=== PATIENT | male | born 1995 | race Caucasian/White ===

== ENCOUNTER 2019-05-05 12:23 | Outpatient (RCR) | payer MEDICAID, OTHER ==
[~2019-05-05 12:23] MED LIST: No Historical Meds
== END 2019-05-11 ==
LOC: M PT 12:23
PROVIDERS: ATTEND Physician Assistant
DX: M54.5 Low back pain (principal)

== ENCOUNTER 2019-06-03 14:30 | Outpatient (RCR) | payer MEDICAID, OTHER | END 2019-06-11 | LOC: M PT 14:30 | PROVIDERS: ATTEND Physician Assistant | DX: Z47.89 Encounter for other orthopedic aftercare (principal); M54.5 Low back pain ==

== ENCOUNTER → 2023-07-31 | Outpatient (REF) | payer OTHER | LOC: M LAB REF 20:41 | PROVIDERS: ATTEND Physician Assistant Medical | DX: R52 Pain, unspecified (principal) ==

== ENCOUNTER 2024-05-16 20:02 | Emergency (ER) | payer OTHER ==
[~2024-05-16] VITALS: Ht 175.3 cm; Wt 99.2 kg
[2024-05-16] MEDS ORDERED: CEPH500C PO (21:56)
[2024-05-16] MEDS ORDERED: PRED20TA PO (21:56)
[2024-05-16] MEDS: CEPHALEXIN 500 MG CAP PO ONE (22:01)
[2024-05-16] MEDS: predniSONE 20 MG TAB PO ONE (22:05)
[2024-05-16 22:06] VITALS: BP 136/90; TEMP 96.1; O2SAT 98
== END 2024-05-16 22:04 | disposition home or self-care (01) ==
LOC: M ED 20:02
DX: T63.441A Toxic effect of venom of bees, accidental (unintentional), initial encounter (principal)
CPT/HCPCS: 99283; J7512

== ENCOUNTER → 2025-06-24 | Outpatient (REF) | payer OTHER ==
[~2025-06-24] MED LIST changes: +CEPH500C PO; +PRED20TA PO
== END ==
LOC: M SFHCPLAZ 14:14
PROVIDERS: ATTEND Family Medicine
DX: Z53.9 Procedure and treatment not carried out, unspecified reason (principal)

== ENCOUNTER 2025-07-27 18:59 | Emergency (ER) | payer OTHER ==
[~2025-07-27] VITALS: Ht 175.3 cm; Wt 100.5 kg
[2025-07-27 19:11] VITALS: BP 137/88; TEMP 98.1; O2SAT 98
[2025-07-27] MEDS ORDERED: FLUTISP (19:27)
[2025-07-27] MEDS ORDERED: LEVOTAB10 (19:27)
== END 2025-07-27 21:53 | disposition left against medical advice (07) ==
LOC: M ED 18:59
DX: Z53.21 Procedure and treatment not carried out due to patient leaving prior to being seen by health care provider (principal)